=== PATIENT | male | born 1945 | race Caucasian/White ===

== ENCOUNTER → 2017-01-11 | Outpatient (REF) | payer BC, MEDICARE ==
[~2017-01-11] MED LIST: /ESOM40CA PO; /WARF25TA PO; ALEV220C2 PO; ASPI81TA85 PO; COUM1TAB17 PO; COUM7.5T PO; GLUCTAB6 PO; LORT5TAB PO; LYRI75CA PO; MULTCAP PO; NEXI40CA PO; PRAV80TA PO; PRAV80TA2 PO; TYLE325T5 PO; ULTR50TA PO; omega 3 OR
[2017-01-11 15:33] LABS: PERCENT SATURATION 6.4 % (19.7-37.4)
[2017-01-12 11:34] LABS: PRETREATED FOLATE FOR RBCFOL 13.1 NG/ML
== END ==
LOC: M LAB REF 14:47
PROVIDERS: ATTEND Internal Medicine
DX: D50.0 Iron deficiency anemia secondary to blood loss (chronic) (principal)

== ENCOUNTER → 2017-01-29 | Outpatient (REF) | payer BC, MEDICARE ==
[2017-01-29 13:27] LABS: RETIC HEMOGLOBIN CONTENT CHr 30.7 PG (24-36); RETICULOCYTE % ADVIA2120 2.8 % (0.5-1.5)
[2017-01-29 13:43] LABS: PERCENT SATURATION 10.6 % (19.7-37.4)
== END ==
LOC: M LAB REF 12:52
PROVIDERS: ATTEND Internal Medicine
DX: D50.0 Iron deficiency anemia secondary to blood loss (chronic) (principal)

== ENCOUNTER → 2017-02-20 | Outpatient (REF) | payer BC, MEDICARE ==
[2017-02-20 14:04] LABS: RETIC HEMOGLOBIN CONTENT CHr 31.3 PG (24-36); RETICULOCYTE % ADVIA2120 2.1 % (0.5-1.5)
== END ==
LOC: M LAB REF 13:34
PROVIDERS: ATTEND Internal Medicine
DX: D50.0 Iron deficiency anemia secondary to blood loss (chronic) (principal)

== ENCOUNTER → 2017-05-04 | Outpatient (REF) | payer BC, MEDICARE ==
[2017-05-07 11:20] LABS: PERCENT SATURATION 19.2 % (19.7-37.4)
== END ==
LOC: M LAB REF 10:38
PROVIDERS: ATTEND Internal Medicine
DX: D64.9 Anemia, unspecified (principal)

== ENCOUNTER → 2019-04-29 | Outpatient (REF) | payer BC, MEDICARE ==
[~2019-04-29] MED LIST changes: -/ESOM40CA PO; -/WARF25TA PO; +COUM1TAB18 PO; +NEXI1CAP3 PO
[2019-04-29 12:04] LABS: BASO % 0.6 % (0.0-1.0); EOS # 0.4 10^3/uL (0.0-0.50); EOS % 6.2 % (0.0-3.0); HEMATOCRIT 44.9 % (42.0-52.0); HEMOGLOBIN 15.1 g/dl (13.5-17.5); LYMPH # 1.2 10^3/uL (1.5-4.5); LYMPH % 18.1 % (24.0-44.0); MEAN CORPUSCULAR HEMOGLOBIN 31.2 pg (27.0-33.0); MEAN CORPUSCULAR HGB CONC 33.6 g/dl (32.0-36.5); MEAN CORPUSCULAR VOLUME 92.8 fl (80.0-96.0); MONO # 0.7 10^3/uL (0.0-0.8); MONO % 10.9 % (0.0-5.0); NEUTROPHILS # 4.2 10^3/uL (1.8-7.7); NEUTROPHILS % 63.9 % (36.0-66.0); PLATELET COUNT, AUTOMATED 162 10^3/uL (150-450); RED BLOOD COUNT 4.84 10^6/uL (4.30-6.10); WHITE BLOOD COUNT 6.6 10^3/uL (4.0-10.0)
[2019-04-29 12:25] LABS: C REACTIVE PROTEIN QUANTITATIV 0.52 MG/DL (0.00-0.30); RHEUMATOID FACTOR QUANT < 10.0 IU/ML (<15.0)
[2019-04-29 12:39] LABS: ERYTHROCYTE SEDIMENTATION RATE 9 mm/hr (0-20)
[2019-05-01 00:06] LABS: ANTINUCLEAR ANTIBODIES DIRECT Negative (Negative); Lyme Disease IgG/IgM Antibodie <0.91 ISR (0.00-0.90); Lyme Disease IgM Ab Quantitati <0.80 index (0.00-0.79)
== END ==
LOC: M LABDRAW1 10:40
PROVIDERS: ATTEND Orthopaedic Surgery
DX: M19.031 Primary osteoarthritis, right wrist (principal)

== ENCOUNTER → 2021-12-02 | Outpatient (REF) | payer OTHER, BC ==
[~2021-12-02] MED LIST changes: +ASPI81TA86 PO; -COUM7.5T PO; +COUM7.5T6 PO
[2021-12-02 11:50] LABS: FOLATE > 24.0 NG/ML; VITAMIN B12 LEVEL 1004 PG/ML
== END ==
LOC: M LAB REF 11:15
PROVIDERS: ATTEND Internal Medicine
DX: K22.70 Barrett's esophagus without dysplasia (principal)